=== PATIENT | female | born 1985 | race Caucasian/White ===

== ENCOUNTER 2017-07-05 13:15 | Emergency (ER) | payer MEDICAID ==
[~2017-07-05] VITALS: Ht 167.6 cm; Wt 68.0 kg
[~2017-07-05 13:15] MED LIST: [UNRECOGNIZED DRUG - OTHER]
[2017-07-05 13:19] VITALS: Ht 167.6 cm; Wt 68.0 kg
[2017-07-05] MEDS ORDERED: ACETAMINOPHEN 325 MG TAB PO ONE (14:00)
--- NOTE | 2017-07-05 14:42 | RADRPT ---
PROCEDURE: XR Wrist. CLINICAL INDICATION: Pain TECHNIQUE: AP, lateral and oblique views of the right wrist were performed. COMPARISON: No prior studies are available for comparison. FINDINGS: There is mild soft tissue swelling seen along the radial aspect of the right hand without evidence o f fracture or dislocation. The joints are intact. IMPRESSION: Mild soft tissue swelling along the radial aspect of the right hand with no evidence of fracture or dislocation. RPTAT: AA .Suresh Chavis MD, Date Time Electronically viewed and signed by .Suresh Chavis MD, on 07/05/2017 14:42 .J/
[2017-07-05] MEDS ORDERED: IBUP-1542 PO (14:57)
[2017-07-05] MEDS ORDERED: TRAM50TA2 PO (14:57)
--- NOTE | 2017-07-05 15:04 | ERD ---
ER Documentation Chief Complaint Date/Time DATE: 07/05/17 TIME: 15:01 Chief Complaint RT ARM PAIN X 2 MONTHS WITH SWELLING TODAY HPI This 32-year-old female complains of pain in the right arm for last 2 months. She has had some possible increase in swelling over the last few days. 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 She has restricted range of motion weakness or fevers or noticeable redness or bleeding. ROS All systems reviewed and are negative except as per history of present illness. Medications Home Meds Active Scripts Tramadol HCl (Tramadol HCl) 50 Mg Tablet, 50 MG PO Q4 Y for PAIN, #14 TAB Prov:FLORENCE CHIANG MD 07/05/17 Ibuprofen* (Motrin*) 600 Mg Tab, 600 MG PO Q6, #30 TAB Prov:FLORENCE CHIANG MD 07/05/17 Reported Medications [overcounter meds] No Conflict Check 09/19/13 Allergies Allergies: Coded Allergies: No Known Drug Allergy (Verified Allergy, Unknown, 09/19/13) PMhx/Soc Medical and Surgical Hx: pt denies Medical Hx, pt denies Surgical Hx History of Surgery: No Anesthesia Reaction: No Hx Neurological Disorder: No Hx Respiratory Disorders: No Hx Cardiac Disorders: No Hx Psychiatric Problems: No Hx Miscellaneous Medical Probl: No Hx Alcohol Use: No Hx Substance Use: No Hx Tobacco Use: No Smoking Status: Never smoker Physical Exam Vitals Vital Signs Date Time Temp Pulse Resp B/P Pulse Ox O2 Delivery O2 Flow Rate FiO2 07/05/17 13:19 98.6 68 20 121/61 99 Physical Exam Const: [], [id number]. Head: Atraumatic Eyes: Normal Conjunctiva ENT: Normal External Ears, Nose and Mouth. Neck: Full range of motion..~ No meningismus. Resp: Clear to auscultation bilaterally Cardio: Regular rate and rhythm, no murmurs Abd: Soft, non tender, non distended. Normal bowel sounds Skin: No petechiae or rashes Back: No midline or flank tenderness Ext: No cyanosis, or edema. Right upper extremity shows a mild tenderness in the flexor forearm tendons and volar area of the right wrist. There is no significant Tinel's signs no deformity. there is no evidence of tendon or neurologic deficit. No warmth, erythema or skin changes. Neur: Awake and alert Psych: Normal Mood and Affect Results 24 hrs Current Medications Medications (Trade) Dose Ordered Sig/Tin Route PRN Reason Start Time Stop Time Status Last Admin Dose Admin Acetaminophen (Tylenol Tab) 650 mg ONCE ONCE PO 07/05/17 14:00 07/05/17 14:01 DC 07/05/17 14:05 Procedures/MDM X-ray Wrist 3V Interpreted by me: Scaphoid: [Normal] Bones: [No fracture] Joints: [No dislocation] Foreign body: [None]. Impression-normal right wrist x-ray Patient presents with a history of right wrist and forearm pain after repetitive motion. Signs or symptoms do not suggest tenosynovitis, osteomyelitis, fracture, dislocation, ischemia. She likely has tendinitis. She will be treated with ibuprofen and tramadol and with patient was placed in a right wrist Velcro brace. Patient is neurovascular intact after the brace. She will be discharged home with primary care and possible orthopedic follow- up. She should return sooner for fevers, redness, new worsening symptoms. Departure Diagnosis: Primary Impression: Tendonitis Additional Impression: Pain of right arm Condition: Stable Patient Instructions: Tendonitis [facility] Usted se juarez hecho un examen mdico de control que le indica que no est en jerrod condicin que requiera tratamiento urgente en el Departamento de Emergencia. Un estudio ms profundo y el tratamiento de warner condicin pueden esperar sin ningn riesgo hasta que usted sea atendida/o en el consultorio de warner mdico o jerrod cl samir. Es responsabilidad suya arreglar jerrod navin para el seguimiento del jaleel. MANEJO DE CONDICIONES NO URGENTES EN EL FUTURO 1) Si usted tiene un mdico de atencin primaria: Usted debera llamar a warner mdico de atencin primaria antes de venir al departamento de emergencia. Despus de las horas de consultorio, warner doctor o warner asociado/a est disponible por telfono. El mdico o enfermero de irma en el servicio telefnico puede asesorarle por evelyn medio para atender el problema, o jaleel contrario se puede programar jerrod navin. 2) Si usted no tiene un mdico de atencin primaria: Llame al mdico o clnica de referencia que aparece abajo gerald las horas de consultorio para hacer jerrod navin para que le vean. CLINICAS: [facility] [phone] [facility] [phone] [address] [facility] [phone] [facility] [phone] [facility] [phone] [address] [facility]. [phone] [address] Additional Instructions: X RAY normal hoy . PROBABLAMENTE TENDONITIS. Cheque otro vez con warner doctor primario en el proximo corcoran or regresa para mas o nueva simptomas- KATELYNN CASTELLON. FLORENCE CHIANG MD Jul 05, 2017 15:04
[2017-07-05 15:17] VITALS: BP 126/61; PULSE 64; RESP 17; TEMP 98.7
== END 2017-07-05 15:19 | disposition home or self-care (01) ==
LOC: FTE 13:15
DX: M77.9 Enthesopathy, unspecified (principal)
CPT/HCPCS: 29125; 73110; Z7502; Z7610